=== PATIENT | female | born 1960 | race Caucasian/White ===

== ENCOUNTER 2018-06-11 08:52 | Day surgery (SDC) | payer OTHER ==
[~2018-06-11 08:52] MED LIST: Acetaminophen 325 MG Tab PO SCH; Lactated Ringers 1,000 ML IV SCH; Lidocaine 1%/Sod Bicarbonate in NS 8.4% 1 ML Syringe IDERM PRN; Pregabalin 25 MG Cap PO SCH; Sodium Chloride 0.9% 10 ML Syringe FLUSH PRN; oxyCODONE ER 10 MG TAB.ER PO SCH
[2018-06-11] MEDS ORDERED: fentaNYL 250 MCG/5 ML SDV ONE (09:49)
[2018-06-11] MEDS ORDERED: Midazolam 1 MG/ML 2 ML SDV ONE ×2 (09:49→11:44)
[2018-06-11] MEDS ORDERED: Iodine/Sodium Iodide 2% Tincture 30 ML Bottle ONE (10:02)
[2018-06-11] MEDS ORDERED: Vancomycin 1 GM SDV ONE (10:02)
[2018-06-11] MEDS ORDERED: Bupivacaine 0.25% 30 ML SDV ONE (10:02)
[2018-06-11] MEDS ORDERED: ceFAZolin 1 GM Vial ONE (10:02)
--- NOTE | 2018-06-11 10:13 | PCM.PREANE ---
Preanesthetic Assessment - Anesthesia/Transfusion/Family Hx Anesthesia History: Prior Anesthesia Without Reaction Family History of Anesthesia Reaction: No Transfusion History: No Prior Transfusion(s) - Review of Systems General: No Symptoms Pulmonary: No Symptoms Cardiovascular: No Symptoms (Amplatzer repair 2017 for ASD. ECHO in 2018 imporved. Denies Chest Pain. ), Other (Holter monitor showing short runs of SVT. On Metoprolo) Gastrointestinal: No Symptoms Neurological: No Symptoms Other: Reports: Thyroid Problems - Physical Assessment NPO Status Date: 06/11/18 NPO Status Time: 19:00 O2 Sat by Pulse Oximetry: 100 Respiratory Rate: 16 Vital Signs: Last Vital Signs Temp 37.1 C 06/11/18 09:00 Pulse 53 L 06/11/18 09:00 Resp 16 06/11/18 09:00 BP 115/77 06/11/18 09:00 Pulse Ox 100 06/11/18 09:00 Weight: 90 kg ASA Class: 2 Mental Status: Alert & Oriented x3 Airway Class: Mallampati = 2 Dentition: Reports: Normal Dentition Thyro-Mental Finger Breadths: 2 Mouth Opening Finger Breadths: 3 ROM/Head Extension: Full Lungs: Clear to Auscultation, Normal Respiratory Effort Cardiovascular: Regular Rate, Regular Rhythm - Lab Values: Laboratory Last Values MRSA (PCR) Negative 05/30/18 09:26 - Allergies Allergies/Adverse Reactions: Allergies Allergy/AdvReac Type Severity Reaction Status Date / Time No Known Allergies Allergy Verified 06/08/18 14:21 - Anesthesia Plan Beta Pooja: Metoprolol Med Last Dose Date: 06/10/18 Med Last Dose Time: 13:00 (HR at 53 today. ) - Acknowledgements Anesthesia Type Planned: Spinal Pt an Appropriate Candidate for the Planned Anesthesia: Yes Alternatives and Risks of Anesthesia Discussed w Pt/Guardian: Yes Pt/Guardian Understands and Agrees with Anesthesia Plan: Yes PreAnesthesia Questionnaire HEENT History: Reports: Impaired Vision, Other (See Below) Other HEENT History: weras glasses Cardiovascular History: Reports: Heart Murmur, High Cholesterol Other Cardiovascular History: palpitations, atrial enlargement, astrial septal defect, enlarged right ventricle Respiratory History: Reports: None Gastrointestinal History: Reports: None Genitourinary History: Reports: None THREAD GRINDER TOOL History: Reports: Other (See Below) Other OB/BYN History: colposcopy Musculoskeletal History: Reports: Osteoarthritis Other Musculoskeletal History: degenerative disc disease, left ankle fracture, left hand surgery Neurological History: Reports: None, Other (See Below) Other Neuro History: degenerative disc disease Psychiatric History: Reports: None Endocrine/Metabolic History: Reports: Hypothyroidism, Obesity/BMI 30+ Hematologic History: Reports: None Immunologic History: Reports: None Oncologic (Cancer) History: Reports: None Dermatologic History: Reports: None - Past Surgical History Head Surgeries/Procedures: Reports: None Cardiovascular Surgical History: Reports: Other (See Below) Other Cardiovascular Surgeries/Procedures: interverbral cardiac shunt, atrial septal defect with mesh device Respiratory Surgical History: Reports: None GI Surgical History: Reports: Colonoscopy, EGD Female Surgical History: Reports: Section, Cervical Cryotherapy, Hysterectomy, Tubal Ligation Endocrine Surgical History: Reports: Other (See Below) Other Endocrine Surgeries/Procedures: partial thyroidectomy Neurological Surgical History: Reports: None Musculoskeletal Surgical History: Reports: Hip Replacement Oncologic Surgical History: Reports: None Dermatological Surgical History: Reports: None - SUBSTANCE USE Smoking Status *Q: Never Smoker Recreational Drug Use History: No - HOME MEDS Home Medications: Home Meds Levothyroxine 112 mcg PO DAILY 04/08/16 [History] Acetaminophen [Tylenol Extra Strength] 1,000 mg PO Q6H PRN 06/08/18 [History] Aspirin [Halfprin] 81 mg PO DAILY 06/08/18 [History] Cholecalciferol (Vitamin D3) [Vitamin D3] 1,000 unit PO DAILY 06/08/18 [History] Ibuprofen 200 mg PO Q4H PRN 06/08/18 [History] Metoprolol Succinate 50 mg PO DAILY 06/08/18 [History] Mv,Wilberto,Iron,Mn/Folic Acid/Chol [Hair, Skin and Nails Capsule] 1 cap PO DAILY 02/14 [History] atorvaSTATin Calcium [Lipitor] 20 mg PO DAILY 06/08/18 [History] - CURRENT (IN HOUSE) MEDS Current Meds: Current Medications Acetaminophen (Tylenol) 975 mg PO NOW [facility] Stop: 06/11/18 14:00 Last Admin: 06/11/18 09:14 Dose: 975 mg Bisacodyl (Dulcolax) 5 mg PO DAILY PRN PRN Reason: Constipation Morphine Sulfate 8 mg/Epinephrine HCl 0.3 mg/Cefuroxime Sodium 750 mg/Ketorolac Tromethamine 30 mg/Sodium Chloride 27.9 ml 0 mg .XX ONETIME ONE Stop: 06/11/18 11:01 Cyclobenzaprine HCl (Flexeril) 10 mg PO TID PRN PRN Reason: Spasms Docusate Sodium (Colace) 100 mg PO BID [facility] Famotidine (Pepcid) 20 mg PO Q12H [facility] Lactated Ringer's (Ringers, Lactated) 1,000 mls @ 125 mls/hr IV ASDIRECTED [facility] Stop: 06/11/18 23:00 Last Admin: 06/11/18 09:20 Dose: 125 mls/hr Cefazolin Sodium/Dextrose 2 gm (/ Premix) 50 mls @ 100 mls/hr IV Q8H [facility] Stop: 06/11/18 23:29 Ketorolac Tromethamine (Toradol) 15 mg IVPUSH Q6H PRN PRN Reason: Pain Lidocaine/Sodium Bicarbonate (Buffered Lidocaine 1% In Ns 8.4%) 0.25 ml IDERM ONETIME PRN PRN Reason: Prior to IV Start Stop: 06/11/18 18:00 Last Admin: 06/11/18 09:19 Dose: 0.25 ml Magnesium Hydroxide (Milk Of Magnesia) 30 ml PO BID PRN PRN Reason: Constipation Morphine Sulfate (Morphine) 2 mg IVPUSH Q2H PRN PRN Reason: Breakthrough Pain Naloxone HCl (Narcan) 0.1 mg IVPUSH Q5M PRN PRN Reason: Oversedation Ondansetron HCl (Zofran) 4 mg IVPUSH Q6H PRN PRN Reason: Nausea/Vomiting Oxycodone HCl (Oxycontin) 10 mg PO ONETIME [facility] Stop: 06/11/18 14:00 Last Admin: 06/11/18 09:13 Dose: 10 mg Oxycodone/Acetaminophen (Percocet 325-5 Mg) 1 - 2 tab PO Q4H PRN PRN Reason: Pain Pregabalin (Lyrica) 50 mg PO ONETIME [facility] Stop: 06/11/18 14:00 Last Admin: 06/11/18 09:13 Dose: 50 mg Rivaroxaban (Xarelto) 10 mg PO DAILY [facility] Senna (Senna) 8.6 mg PO BID PRN PRN Reason: Constipation Sodium Chloride (Saline Flush) 10 ml FLUSH ASDIRECTED PRN PRN Reason: Keep Vein Open Stop: 06/11/18 23:00 Discontinued Medications Bupivacaine HCl (Marcaine 0.25%) Confirm Administered Dose 30 ml .ROUTE .STK- MED ONE Stop: 06/11/18 10:03 Cefazolin Sodium (Ancef) Confirm Administered Dose 2 gm .ROUTE .STK-MED ONE Stop: 06/11/18 10:03 Fentanyl (Sublimaze) Confirm Administered Dose 250 mcg .ROUTE .STK-MED ONE Stop: 06/11/18 09:50 Iodine (Iodine 2% Mild Tincture) Confirm Administered Dose 30 ml .ROUTE .STK- MED ONE Stop: 06/11/18 10:03 Midazolam HCl (Versed 1 Mg/Ml) Confirm Administered Dose 2 mg .ROUTE .STK-MED ONE Stop: 06/11/18 09:50 Tranexamic Acid (Cyklokapron) Confirm Administered Dose 1,000 mg .ROUTE .STK- MED ONE Stop: 06/11/18 10:03 Vancomycin HCl (Vancomycin) Confirm Administered Dose 1 gm .ROUTE .STK-MED ONE Stop: 06/11/18 10:03
[2018-06-11] MEDS ORDERED: Propofol 200 MG/20 ML SDV ONE ×3 (10:28→12:47)
[2018-06-11] MEDS ORDERED: Ketamine 500 mg/10 ML MDV ONE (10:28)
[2018-06-11] MEDS ORDERED: Lidocaine 1% 4 ML ONE (10:28)
[2018-06-11] MEDS ORDERED: Morphine 8 MG, EPINEPHrine 0.3 MG, Cefuroxime 750 MG, Ketorolac 30 MG, Sodium Chloride ... ONE ×5 (11:00)
[2018-06-11] MEDS ORDERED: Ondansetron 4 MG/2 ML SDV ONE (11:22)
[2018-06-11] MEDS ORDERED: Ketorolac 30 MG/ML SDV ONE (11:22)
[2018-06-11] MEDS ORDERED: Dexamethasone 4 MG/ML 5 ML MDV ONE (11:22)
[2018-06-11] MEDS ORDERED: ePHEDrine/Normal Saline 25 MG/5 ML Syringe ONE (11:25)
[2018-06-11] MEDS ORDERED: Phenylephrine/Normal Saline 100 MCG/ML 10 ML Syringe ONE (11:34)
[2018-06-11] MEDS ORDERED: diphenhydrAMINE 50 MG/ML SDV IVPUSH PRN (11:54)
[2018-06-11] MEDS ORDERED: Ondansetron 4 MG/2 ML SDV IVPUSH PRN ×2 (11:54→12:00)
[2018-06-11] MEDS ORDERED: Magnesium Hydroxide 400 MG/5 ML Susp 30 ML Cup PO PRN (12:00)
[2018-06-11] MEDS ORDERED: Ketorolac 15 MG/ML SDV IVPUSH PRN (12:00)
[2018-06-11] MEDS ORDERED: Morphine 2 MG/ML Syringe IVPUSH PRN (12:00)
[2018-06-11] MEDS ORDERED: Bisacodyl 5 MG Tab PO PRN (12:00)
[2018-06-11] MEDS ORDERED: Naloxone 0.4 MG/ML SDV IVPUSH PRN (12:00)
[2018-06-11] MEDS ORDERED: Sennosides 8.6 MG Tab PO PRN (12:00)
[2018-06-11] MEDS ORDERED: HYDROmorphone 0.5 MG/0.5 ML Syringe ONE (12:56)
--- NOTE | 2018-06-11 13:07 | PCM.POSTAN ---
POST ANESTHESIA ASSESSMENT - MENTAL STATUS Mental Status: Alert, Oriented - VITAL SIGNS Pulse Rate: 79 SaO2: 96 Resp Rate: 11 Blood Pressure: 103/62 Temperature: 36.5 C - RESPIRATORY Respiratory Status: Respiratory Rate WNL, Airway Patent, O2 Saturation Stable, Supplemental Oxygen - CARDIOVASCULAR CV Status: Pulse Rate WNL, Blood Pressure Stable - GASTROINTESTINAL GI Status: No Symptoms - PAIN Pain Score: 5 - POST OP HYDRATION Hydration Status: Adequate & Stable
[2018-06-11] MEDS ORDERED: fentaNYL 100 MCG/2 ML SDV ONE (13:11)
[2018-06-11] MEDS: fentaNYL 100 MCG/2 ML SDV IVPUSH PRN ×2 (13:12→13:22)
[2018-06-11] MEDS ORDERED: HYDROmorphone 0.5 MG/0.5 ML Syringe IVPUSH PRN (13:16)
[2018-06-11] MEDS ORDERED: Ropivacaine 0.5% 5 MG/ML 30 ML SDV ONE (13:18)
[2018-06-11] MEDS ORDERED: EPINEPHrine 1 MG/ML SDV ONE (13:18)
--- NOTE | 2018-06-11 13:50 | PCM.SN ---
- Free Text/Narrative Note: Right selective femoral nerve block at the adductor canal for post-procedure pain control under US guidance requested by Dr. Ortiz. Time Out: 1324 Start: 1324 End: 1330 Chart reviewed. Consent signed. Questions answered. Appropriate monitors applied. Time out performed. Right mid-shaft femur identified with ultrasound, scanning medially of femur, the femoral artery in the adductor canal visualized , and the femoral nerve located laterally to the artery. The skin was prepped lateral to the ultrasound probe with chlorahexadine times two. The 21ga 4 insulated block needle was inserted under direct ultrasound guidance into the adductor canal. 25mL of 0.5% ropivacaine with 1:200,000 epinephrine was injected circumferentially around the nerve with intermittent negative aspiration noted. Patient tolerated the procedure well. Sterile technique noted along with sterile gloves, mask, and probe cover. See picture on progress note and vital signs on nurses notes. Block completed in PACU. Delilah Salinas CRNA
--- NOTE | 2018-06-11 14:26 | CR ---
Right knee: Two views of the right knee were obtained. Comparison: No prior right knee exam. Knee prosthesis is seen. Components are aligned. Soft tissue air is noted from the surgical procedure. Underlying bony structures are intact. Impression: 1. Satisfactory postop radiographic appearance of recently placed right knee prosthesis. Diagnostic code #2
[2018-06-11] MEDS: Acetaminophen/oxyCODONE 325-5 MG Tab PO PRN ×2 (16:43→21:16)
[2018-06-11] MEDS: ceFAZolin 2 GM in Premix Bag 1 BAG IV SCH (18:22)
[2018-06-11] MEDS: Docusate Sodium 100 MG Cap PO SCH (21:14)
[2018-06-11] MEDS: Famotidine 20 MG Tab PO SCH (21:14)
[2018-06-12] MEDS: Acetaminophen/oxyCODONE 325-5 MG Tab PO PRN ×3 (01:57→12:59)
[2018-06-12] MEDS: ceFAZolin 2 GM in Premix Bag 1 BAG IV SCH ×2 (01:59→10:07)
[2018-06-12] MEDS: Cyclobenzaprine 10 MG Tab PO PRN ×2 (04:43→10:47)
[2018-06-12] MEDS ORDERED: Levothyroxine 112 MCG Tab PO SCH (07:00)
--- NOTE | 2018-06-12 07:56 | PCM48HPAN ---
Post Anesthesia Note - EVALUATION WITHIN 48HRS OF ANESTHETIC Vital Signs in Normal Range: Yes Patient Participated in Evaluation: Yes Respiratory Function Stable: Yes Airway Patent: Yes Cardiovascular Function Stable: Yes Hydration Status Stable: Yes Pain Control Satisfactory: Yes Nausea and Vomiting Control Satisfactory: Yes Mental Status Recovered: Yes Pulse Rate: 59 Resp Rate: 18 Temperature: 97.9 F Blood Pressure: 106/61
--- NOTE | 2018-06-12 08:11 | PCM.SURGPN ---
- General Info Date of Service: 06/12/18 POD#: 1 Functional Status: Reports: Pain Controlled, Tolerating Diet, Ambulating, Urinating, Incentive Spirometry, Other (Pt states she feels she is doing very well.) - Review of Systems General: Denies: Fever, Chills Pulmonary: Denies: Shortness of Breath Cardiovascular: Denies: Chest Pain, Palpitations Gastrointestinal: Reports: Flatus. Denies: Abdominal Pain Genitourinary: Denies: Dysuria Musculoskeletal: Reports: Other (The pt states she was walking well in the halls with therapy.) - Patient Data Vitals - Most Recent: Last Vital Signs Temp 97.9 F 06/12/18 07:56 Pulse 59 L 06/12/18 07:56 Resp 18 06/12/18 07:56 BP 106/61 06/12/18 07:56 Pulse Ox 95 06/12/18 03:00 Weight - Most Recent: 210 lb 14.4 oz I&O - Last 24 Hours: Intake & Output 06/11/18 06/12/18 06/12/18 22:59 06:59 14:59 Intake Total 880 1300 Output Total 1650 Balance 880 -350 Lab Results Last 24 Hrs: Laboratory Results - last 24 hr 06/12/18 06/12/18 Range/Units 05:26 05:26 WBC 8.60 (3.98-10.04) K/mm3 RBC 3.47 L (3.98-5.22) M/mm3 Hgb 10.9 L (11.2-15.7) gm/L Hct 33.1 L (34.1-44.9) % MCV 95.4 H (79.4-94.8) fl MCH 31.4 (25.6-32.2) pg MCHC 32.9 (32.2-35.5) g/dl RDW Std Deviation 41.6 (36.4-46.3) fL Plt Count 257 (182-369) K/mm3 MPV 10.2 (9.4-12.3) fl Sodium 136 (136-145) mEq/L Potassium 4.2 (3.5-5.1) mEq/L Chloride 104 (98-107) mEq/L Carbon Dioxide 25 (21-32) mEq/L Anion Gap 11.2 (5-15) BUN 15 (7-18) mg/dL Creatinine 0.7 (0.55-1.02) mg/dL Est Cr Clr Drug Dosing 84.01 mL/min Estimated GFR (MDRD) > 60 (>60) mL/min BUN/Creatinine Ratio 21.4 H (14-18) Glucose 134 H (74-106) mg/dL Calcium 8.8 (8.5-10.1) mg/dL Total Bilirubin 0.3 (0.2-1.0) mg/dL AST 21 (15-37) U/L ALT 32 (14-59) U/L Alkaline Phosphatase 64 (46-116) U/L Total Protein 6.0 L (6.4-8.2) g/dl Albumin 3.1 L (3.4-5.0) g/dl Globulin 2.9 gm/dL Albumin/Globulin Ratio 1.1 (1-2) Med Orders - Current: Current Medications Aspirin (Halfprin) 81 mg PO DAILY [facility] Bisacodyl (Dulcolax) 5 mg PO DAILY PRN PRN Reason: Constipation Cholecalciferol (Vitamin D3) 1,000 units PO DAILY [facility] Cyclobenzaprine HCl (Flexeril) 10 mg PO TID PRN PRN Reason: Spasms Last Admin: 06/12/18 04:43 Dose: 10 mg Docusate Sodium (Colace) 100 mg PO BID [facility] Last Admin: 06/11/18 21:14 Dose: 100 mg Famotidine (Pepcid) 20 mg PO Q12H [facility] Last Admin: 06/11/18 21:14 Dose: 20 mg Cefazolin Sodium/Dextrose 2 gm (/ Premix) 50 mls @ 100 mls/hr IV Q8H [facility] Stop: 06/12/18 10:29 Last Admin: 06/12/18 01:59 Dose: 100 mls/hr Ketorolac Tromethamine (Toradol) 15 mg IVPUSH Q6H PRN PRN Reason: Pain Levothyroxine Sodium (Levothyroxine) 112 mcg PO DAILY@0700 [facility] Last Admin: 06/12/18 06:32 Dose: 112 mcg Magnesium Hydroxide (Milk Of Magnesia) 30 ml PO BID PRN PRN Reason: Constipation Metoprolol Succinate (Toprol Xl) 50 mg PO DAILY [facility] Morphine Sulfate (Morphine) 2 mg IVPUSH Q2H PRN PRN Reason: Breakthrough Pain Multivitamins (Thera) 1 each PO DAILY [facility] Naloxone HCl (Narcan) 0.1 mg IVPUSH Q5M PRN PRN Reason: Oversedation Ondansetron HCl (Zofran) 4 mg IVPUSH Q6H PRN PRN Reason: Nausea/Vomiting Oxycodone/Acetaminophen (Percocet 325-5 Mg) 1 - 2 tab PO Q4H PRN PRN Reason: Pain Last Admin: 06/12/18 01:57 Dose: 2 tab Rivaroxaban (Xarelto) 10 mg PO DAILY [facility] Senna (Senna) 8.6 mg PO BID PRN PRN Reason: Constipation Simvastatin (Zocor) 20 mg PO DAILY [facility] Discontinued Medications Acetaminophen (Tylenol) 975 mg PO NOW [facility] Stop: 06/11/18 14:00 Last Admin: 06/11/18 09:14 Dose: 975 mg Bupivacaine HCl (Marcaine 0.25%) Confirm Administered Dose 30 ml .ROUTE .STK- MED ONE Stop: 06/11/18 10:03 Last Admin: 06/11/18 12:17 Dose: 30 ml Cefazolin Sodium (Ancef) Confirm Administered Dose 2 gm .ROUTE .STK-MED ONE Stop: 06/11/18 10:03 Last Admin: 06/11/18 12:16 Dose: 2 gm Morphine Sulfate 8 mg/Epinephrine HCl 0.3 mg/Cefuroxime Sodium 750 mg/Ketorolac Tromethamine 30 mg/Sodium Chloride 27.9 ml 0 mg .XX ONETIME ONE Stop: 06/11/18 11:01 Last Admin: 06/11/18 12:17 Dose: 788.3 mg Dexamethasone (Dexamethasone) Confirm Administered Dose 20 mg .ROUTE .STK-MED ONE Stop: 06/11/18 11:23 Diphenhydramine HCl (Benadryl) 25 mg IVPUSH Q6H PRN PRN Reason: ITCHING Stop: 06/11/18 18:00 Ephedrine Sulfate (Ephedrine In Ns) Confirm Administered Dose 25 mg .ROUTE .STK- MED ONE Stop: 06/11/18 11:26 Epinephrine HCl (Adrenalin) Confirm Administered Dose 1 mg .ROUTE .STK-MED ONE Stop: 06/11/18 13:19 Fentanyl (Sublimaze) Confirm Administered Dose 250 mcg .ROUTE .STK-MED ONE Stop: 06/11/18 09:50 Fentanyl (Sublimaze) 50 mcg IVPUSH Q5M PRN PRN Reason: Pain Stop: 06/11/18 18:00 Last Admin: 06/11/18 13:22 Dose: 50 mcg Fentanyl (Sublimaze) Confirm Administered Dose 100 mcg .ROUTE .STK-MED ONE Stop: 06/11/18 13:12 Last Admin: 06/11/18 13:12 Dose: Not Given Hydromorphone HCl (Dilaudid) Confirm Administered Dose 0.5 mg .ROUTE .STK-MED ONE Stop: 06/11/18 12:57 Hydromorphone HCl (Dilaudid) 0.5 mg IVPUSH Q15M PRN PRN Reason: severe pain Stop: 06/11/18 20:00 Lactated Ringer's (Ringers, Lactated) 1,000 mls @ 125 mls/hr IV ASDIRECTED [facility] Stop: 06/11/18 23:00 Last Admin: 06/11/18 09:20 Dose: 125 mls/hr Lidocaine HCl (Xylocaine-Mpf 1%) Confirm Administered Dose 4 mls @ as directed .ROUTE .STK-MED ONE Stop: 06/11/18 10:29 Iodine (Iodine 2% Mild Tincture) Confirm Administered Dose 30 ml .ROUTE .STK- MED ONE Stop: 06/11/18 10:03 Last Admin: 06/11/18 12:14 Dose: 18 ml Ketamine HCl (Ketalar) Confirm Administered Dose 500 mg .ROUTE .STK-MED ONE Stop: 06/11/18 10:29 Ketorolac Tromethamine (Toradol) Confirm Administered Dose 30 mg .ROUTE .STK- MED ONE Stop: 06/11/18 11:23 Lidocaine/Sodium Bicarbonate (Buffered Lidocaine 1% In Ns 8.4%) 0.25 ml IDERM ONETIME PRN PRN Reason: Prior to IV Start Stop: 06/11/18 18:00 Last Admin: 06/11/18 09:19 Dose: 0.25 ml Midazolam HCl (Versed 1 Mg/Ml) Confirm Administered Dose 2 mg .ROUTE .STK-MED ONE Stop: 06/11/18 09:50 Midazolam HCl (Versed 1 Mg/Ml) Confirm Administered Dose 2 mg .ROUTE .STK-MED ONE Stop: 06/11/18 11:45 Ondansetron HCl (Zofran) Confirm Administered Dose 4 mg .ROUTE .STK-MED ONE Stop: 06/11/18 11:23 Ondansetron HCl (Zofran) 4 mg IVPUSH ONETIME PRN PRN Reason: Nausea/Vomiting Stop: 06/11/18 18:00 Oxycodone HCl (Oxycontin) 10 mg PO ONETIME [facility] Stop: 06/11/18 14:00 Last Admin: 06/11/18 09:13 Dose: 10 mg Phenylephrine HCl (Phenylephrine In Ns 100 Mcg/Ml) Confirm Administered Dose 1 mg .ROUTE .STK-MED ONE Stop: 06/11/18 11:35 Pregabalin (Lyrica) 50 mg PO ONETIME [facility] Stop: 06/11/18 14:00 Last Admin: 06/11/18 09:13 Dose: 50 mg Propofol (Diprivan 20 Ml) Confirm Administered Dose 600 mg .ROUTE .STK-MED ONE Stop: 06/11/18 10:29 Propofol (Diprivan 20 Ml) Confirm Administered Dose 200 mg .ROUTE .STK-MED ONE Stop: 06/11/18 12:22 Propofol (Diprivan 20 Ml) Confirm Administered Dose 200 mg .ROUTE .STK-MED ONE Stop: 06/11/18 12:48 Ropivacaine (Naropin 0.5%) Confirm Administered Dose 30 ml .ROUTE .STK-MED ONE Stop: 06/11/18 13:19 Sodium Chloride (Saline Flush) 10 ml FLUSH ASDIRECTED PRN PRN Reason: Keep Vein Open Stop: 06/11/18 23:00 Tranexamic Acid (Cyklokapron) Confirm Administered Dose 1,000 mg .ROUTE .STK- MED ONE Stop: 06/11/18 10:03 Last Admin: 06/11/18 12:30 Dose: 1,000 mg Vancomycin HCl (Vancomycin) Confirm Administered Dose 1 gm .ROUTE .STK-MED ONE Stop: 06/11/18 10:03 Last Admin: 06/11/18 12:23 Dose: 1 gm - Exam Wound/Incisions: Dressing Dry and Intact General: Alert, Cooperative, No Acute Distress Lungs: Normal Respiratory Effort Extremities: Other (NVS intact for BLE. Adrien's negative for BLE. ) - Problem List Review Problem List Initiated/Reviewed/Updated: Yes - My Orders Last 24 Hours: Active Orders 24 hr Category Date Time Status Cooling Warming Measures [RC] ASDIRECTED Care 06/11/18 11:53 Active Notify Provider [RC] ASDIRECTED Care 06/11/18 11:54 Active Pulse Oximetry [RC] ASDIRECTED Care 06/11/18 11:53 Active Ready for Discharge [RC] PER UNIT ROUTINE Care 06/12/18 08:09 Ordered Regular Diet [DIET] Diet 06/11/18 Dinner Active Acetaminophen/oxyCODONE [Percocet 325-5 MG] Med 06/11/18 12:00 Active 1 - 2 tab PO Q4H PRN Aspirin [Halfprin] Med 06/12/18 09:00 Active 81 mg PO DAILY Bisacodyl [Dulcolax] Med 06/11/18 12:00 Active 5 mg PO DAILY PRN Cholecalciferol (Vitamin D3) [Vitamin D3] Med 06/12/18 09:00 Active 1,000 units PO DAILY Cyclobenzaprine [Flexeril] Med 06/11/18 12:00 Active 10 mg PO TID PRN Docusate Sodium [Colace] Med 06/11/18 21:00 Active 100 mg PO BID Famotidine [Pepcid] Med 06/11/18 21:00 Active 20 mg PO Q12H Ketorolac [Toradol] Med 06/11/18 12:00 Active 15 mg IVPUSH Q6H PRN Levothyroxine Med 06/12/18 07:00 Active 112 mcg PO DAILY@0700 Magnesium Hydroxide [Milk of Magnesia] Med 06/11/18 12:00 Active 30 ml PO BID PRN Metoprolol Succinate [Toprol XL] Med 06/12/18 09:00 Active 50 mg PO DAILY Morphine Med 06/11/18 12:00 Active 2 mg IVPUSH Q2H PRN Multivitamins,Therapeutic [Thera] Med 06/12/18 09:00 Active 1 each PO DAILY Naloxone [Narcan] Med 06/11/18 12:00 Active 0.1 mg IVPUSH Q5M PRN Ondansetron [Zofran] Med 06/11/18 12:00 Active 4 mg IVPUSH Q6H PRN Rivaroxaban [Xarelto] Med 06/12/18 09:00 Active 10 mg PO DAILY Sennosides [Senna] Med 06/11/18 12:00 Active 8.6 mg PO BID PRN Simvastatin [Zocor] Med 06/12/18 09:00 Active 20 mg PO DAILY ceFAZolin [Ancef] 2 gm Med 06/11/18 18:00 Active Premix Bag 1 bag IV Q8H Medication Orders Aspirin (Halfprin) 81 mg PO DAILY [facility] Bisacodyl (Dulcolax) 5 mg PO DAILY PRN PRN Reason: Constipation Cholecalciferol (Vitamin D3) 1,000 units PO DAILY [facility] Cyclobenzaprine HCl (Flexeril) 10 mg PO TID PRN PRN Reason: Spasms Last Admin: 06/12/18 04:43 Dose: 10 mg Docusate Sodium (Colace) 100 mg PO BID [facility] Last Admin: 06/11/18 21:14 Dose: 100 mg Famotidine (Pepcid) 20 mg PO Q12H [facility] Last Admin: 06/11/18 21:14 Dose: 20 mg Cefazolin Sodium/Dextrose 2 gm (/ Premix) 50 mls @ 100 mls/hr IV Q8H [facility] Stop: 06/12/18 10:29 Last Admin: 06/12/18 01:59 Dose: 100 mls/hr Infusion: 06/11/18 18:52 Dose: 100 mls/hr Admin: 06/11/18 18:22 Dose: 100 mls/hr Ketorolac Tromethamine (Toradol) 15 mg IVPUSH Q6H PRN PRN Reason: Pain Levothyroxine Sodium (Levothyroxine) 112 mcg PO DAILY@0700 [facility] Last Admin: 06/12/18 06:32 Dose: 112 mcg Magnesium Hydroxide (Milk Of Magnesia) 30 ml PO BID PRN PRN Reason: Constipation Metoprolol Succinate (Toprol Xl) 50 mg PO DAILY [facility] Morphine Sulfate (Morphine) 2 mg IVPUSH Q2H PRN PRN Reason: Breakthrough Pain Multivitamins (Thera) 1 each PO DAILY [facility] Naloxone HCl (Narcan) 0.1 mg IVPUSH Q5M PRN PRN Reason: Oversedation Ondansetron HCl (Zofran) 4 mg IVPUSH Q6H PRN PRN Reason: Nausea/Vomiting Oxycodone/Acetaminophen (Percocet 325-5 Mg) 1 - 2 tab PO Q4H PRN PRN Reason: Pain Last Admin: 06/12/18 01:57 Dose: 2 tab Admin: 06/11/18 21:16 Dose: 2 tab Admin: 06/11/18 16:43 Dose: 2 tab Rivaroxaban (Xarelto) 10 mg PO DAILY [facility] Senna (Senna) 8.6 mg PO BID PRN PRN Reason: Constipation Simvastatin (Zocor) 20 mg PO DAILY [facility] - Assessment Assessment (Free Text/Narrative):: POD#1 - right TKA - Plan Plan (Free Text/Narrative):: 1. Hgb 10.9. 2. Xarelto 10mg PO daily. Frequent mobility, TEDs. 3. Discharge to home today. 4. Outpatient therapy. The pt's case was discussed with Dr. Ortiz.
[2018-06-12] MEDS: Famotidine 20 MG Tab PO SCH (08:33)
[2018-06-12] MEDS: Docusate Sodium 100 MG Cap PO SCH (08:33)
[2018-06-12] MEDS ORDERED: Cholecalciferol (Vitamin D3) 1,000 Unit Tab PO SCH (09:00)
[2018-06-12] MEDS ORDERED: Multivitamins,Therapeutic Tab PO SCH (09:00)
[2018-06-12] MEDS ORDERED: Metoprolol Succinate 50 MG Tab.ER PO SCH (09:00)
[2018-06-12] MEDS ORDERED: Simvastatin 20 MG Tab PO SCH (09:00)
[2018-06-12] MEDS ORDERED: Aspirin 81 MG Tab.EC PO SCH (09:00)
[2018-06-12] MEDS ORDERED: Rivaroxaban 10 MG Tab PO SCH (09:00)
[2018-06-12 14:10] VITALS: BP 100/58
--- NOTE | 2018-06-14 11:06 | PCM.OPNOTE ---
- General Post-Op/Procedure Note Date of Surgery/Procedure: 06/11/18 Operative Procedure(s): right total knee arthroplasty Pre Op Diagnosis: right knee osteoarthrosis Post-Op Diagnosis: Same Anesthesia Technique: Local, MAC, Spinal Primary Surgeon: Nils Ortiz Anesthesia Provider: Juanita Salinas Art Tracer: Gris Lundberg Art Tracer: Vikki Stevens in mLs: 75 Complications: None Condition: Good Free Text/Narrative:: size 5 femur size 4 tibia 4 9mm 32x10 cemented patella
--- NOTE | 2018-06-14 12:29 | OR ---
DATE OF OPERATION: 06/11/2018 SURGEON: Nils Ortiz MD OPERATION PERFORMED: Right total knee arthroplasty. PREOPERATIVE DIAGNOSIS: Right knee osteoarthrosis. POSTOPERATIVE DIAGNOSIS: Right knee osteoarthrosis. ANESTHESIA: Local MAC with spinal. ANESTHESIA PROVIDER: Mitzi Lim. ASSISTANTS: 1. Gris Lundberg PA-C. 2. Vikki Stevens LPN. ESTIMATED BLOOD LOSS: 75 mL. COMPLICATIONS: None. CONDITION: Stable. IMPLANTS: 1. [place] size 5 press-fit CR femur. 2. Sujit size 4 press-fit tibial base plate. 3. [place] size 4, 9 mm CS polyethylene insert. 4. [place] size 32 x 10 mm cemented patella. DESCRIPTION OF PROCEDURE: The patient was identified in the preop holding area. Proper site was marked and identified by the surgeon. The patient was taken back to the operating theater. After adequate anesthesia, the patient's right lower extremity had a nonsterile tourniquet applied and it was sterilely prepped and draped in the usual sterile fashion. OR time-out was performed. The patient received 2 g IV Ancef. At this time, the right lower extremity was exsanguinated. Tourniquet was insufflated to 300 mmHg. Standard medial parapatellar incision was made. Medial parapatellar arthrotomy was created. Deep fibers of the MCL were raised and anterior fat pad was resected. At this time, attention was turned to the patella. Patella measured 24, it was resected to a 14 for a 32 x 10 mm patella. Drill holes were then drilled and found to be in adequate position. The drill was then drilled in the distal femur and the intramedullary distal femoral cutting guide was then placed. 8 mm was resected off the distal femur and was found to be an adequate resection. Sizing guide was placed. It was found to be a size 5 press-fit CR femur that was shown on the implant record at the beginning of this dictation. The drill holes were drilled for the epicondylar axis using Whitesides line and epicondyles as reference. At this time, the 4-in - 1 cutting block was placed. An anterior posterior and anterior and posterior chamfer cuts were then completed. Attention was turned to the tibia. The posterior medial lateral retractors were placed. The extramedullary tibial guide was placed. It was placed in the old footprint of the ACL. It was aligned with the center of the ankle and 0 degrees of slope, 9 mm was then resected off the unaffected side. There was found to be an acceptable reduction. At this time, posterior osteophytes were removed along with medial and lateral meniscus. A trial implant was placed with a correct sized tibia that was mentioned at the beginning of the dictation. A [place] size 4, 9 mm CS polyethylene insert was then placed. The patient's knee was brought through range of motion. The patella was tracking centrally and was stable to varus and valgus stress. Alignment was found to be roughly at 0 degrees. The tibia was stamped and drilled in proper rotation. The universal tibial base plate was impacted in place. Next, the [place] size 5 press-fit CR femur impacted into place and the [place] size 4, 9 mm CS polyethylene insert was placed. The patient's knee was brought into full extension. The patella was then cemented as we did not have an adequate press-fit One liter dilute Betadine solution was irrigated through the knee along with 3 L of pulse lavage irrigation with Ancef. Periarticular injection was then completed. The patient's knee was brought through a range of motion. Once the cement had time to set up and it was found to be stable to varus valgus stress, the patella was tracking centrally with full range of motion. At this time, a #2 barbed suture was used for closure of the medial parapatellar arthrotomy. Topical tranexamic acid was placed as well as Vangcoycin powder. 2-0 Vicryl was used subcutaneously, Prineo was used for the skin. The patient tolerated the procedure well and was sent to the PACU in stable condition. MMODAL /[id number] ISAURO
== END 2018-06-12 13:05 | disposition home or self-care (01) ==
LOC: JD.MS 08:52 → JD.SDS 08:52
PROVIDERS: ATTEND Orthopaedic Surgery
DX: M17.11 Unilateral primary osteoarthritis, right knee (principal); M16.12 Unilateral primary osteoarthritis, left hip; E03.9 Hypothyroidism, unspecified; E78.2 Mixed hyperlipidemia; E66.9 Obesity, unspecified; Z68.32 Body mass index [BMI] 32.0-32.9, adult; Z96.641 Presence of right artificial hip joint; Z79.82 Long term (current) use of aspirin; Z79.899 Other long term (current) drug therapy
CPT/HCPCS: 27447; 36415; 73560; 80053; 85027; 87641; 94760; 97110; 97116; 97161; 97165; 97535; A9270; C1713; C1776; J0171; J0690; J0697; J1100; J1170; J1885; J2001; J2250; J2270; J2370; J2405; J2704; J2795; J3010; J3370; J3490; J7050; J7120; 01402; 64450

== ENCOUNTER 2023-03-02 06:40 | Day surgery (SDC) | payer BC ==
[~2023-03-02 06:40] MED LIST changes: +Acetaminophen 325 MG Tab PO ONE; -Acetaminophen 325 MG Tab PO SCH; -Lidocaine 1%/Sod Bicarbonate in NS 8.4% 1 ML Syringe IDERM PRN; +Morphine 8 MG, EPINEPHrine 0.3 MG, Cefuroxime 750 MG, Ketorolac 30 MG, Sodium Chloride ... PRN; +Pregabalin 25 MG Cap PO ONE; -Pregabalin 25 MG Cap PO SCH; +Sodium Chloride 0.9% 10 ML Syringe FLUSH SCH; +Tranexamic Acid 1,000 MG/10 ML Vial ONE; +Vancomycin 1 GM SDV ONE; +oxyCODONE ER 10 MG TAB.ER PO ONE; -oxyCODONE ER 10 MG TAB.ER PO SCH
[2023-03-02] MEDS ORDERED: Midazolam 1 MG/ML 2 ML SDV ONE (07:39)
[2023-03-02] MEDS ORDERED: fentaNYL 100 MCG/2 ML SDV ONE (07:39)
[2023-03-02] MEDS ORDERED: Propofol 200 MG/20 ML SDV ONE ×2 (07:39→10:15)
[2023-03-02] MEDS ORDERED: Ketamine 500 mg/10 ML MDV ONE (07:39)
[2023-03-02] MEDS ORDERED: Lidocaine 1% 5 ML VIAL ONE (07:40)
[2023-03-02] MEDS ORDERED: Rocuronium 50 MG/5 ML Vial ONE (07:40)
[2023-03-02] MEDS ORDERED: Ondansetron 4 MG/2 ML SDV ONE (07:40)
[2023-03-02] MEDS ORDERED: dexmedeTOMIDine HCl 200 MCG/2 ML SDV ONE (07:40)
[2023-03-02] MEDS ORDERED: Phenylephrine 1% 10 MG/ML SDV ONE (07:42)
[2023-03-02] MEDS ORDERED: Tranexamic Acid 1,000 MG/10 ML Vial ONE (07:44)
[2023-03-02] MEDS ORDERED: Vancomycin 1 GM SDV ONE (07:44)
[2023-03-02] MEDS ORDERED: ceFAZolin 2 GM Vial ONE (08:20)
[2023-03-02] MEDS ORDERED: Lactated Ringers 1,000 ML ONE (09:47)
[2023-03-02] MEDS ORDERED: Cyclobenzaprine 10 MG Tab PO PRN (11:48)
[2023-03-02] MEDS ORDERED: oxyCODONE 5 MG Tab PO PRN (11:48)
[2023-03-02 13:25] VITALS: BP 97/72; PULSE 54
== END 2023-03-02 14:10 | disposition home or self-care (01) ==
LOC: JD.SDS 06:40
PROVIDERS: ATTEND Orthopaedic Surgery
DX: M16.12 Unilateral primary osteoarthritis, left hip (principal); E78.2 Mixed hyperlipidemia; E66.9 Obesity, unspecified; Z68.27 Body mass index [BMI] 27.0-27.9, adult; Z79.82 Long term (current) use of aspirin; Z79.899 Other long term (current) drug therapy
CPT/HCPCS: 0055T; 27130; 73501; 97116; 97161; A9270; C1713; C1776; J0171; J0690; J0697; J1885; J2250; J2270; J2405; J2704; J3010; J3370; J3490; J7030; J7120; 01214; J2371